=== PATIENT | female | born 1975 | race African-American/Black ===

== ENCOUNTER → 2025-02-05 | Outpatient (CLI) | payer MEDICAID, SELFPAY ==
--- NOTE | 2025-02-05 10:45 | XR_ITS ---
Examination: Screening digital mammography, bilateral Computer aided detection 3-D breast Tomosynthesis, bilateral Date and time of exam: May 07, 2025 1108 hours Indication: Screening Technique: Nonmagnified MLO, CC views of the breasts to been obtained, reconstructed from 3-D Tomosynthesis images. R2 computer aided detection program utilized for evaluation of suspicious masses and/or abnormal calcifications. 3-D Tomosynthesis images obtained. Findings: The breasts are extremely dense, which limits the sensitivity of mammography 4 mm nodule upper right breast anterior depth Implants intact Impression: BI-RADS Category 0: Incomplete: Need additional imaging evaluation Recommend spot tomographic views of 4 mm nodule upper outer upper right breast anterior depth, right breast sonography to complete the workup
== END | disposition home or self-care (01) ==
LOC: CDIM 10:46
PROVIDERS: Referring Provider Physician Assistant; Visit Provider Physician Assistant
DX: Z12.31 Encounter for screening mammogram for malignant neoplasm of breast (principal); N63.11 Unspecified lump in the right breast, upper outer quadrant; R92.8 Other abnormal and inconclusive findings on diagnostic imaging of breast
CPT/HCPCS: 77063; 77067